=== PATIENT | male | born 1985 | race Caucasian/White ===

== ENCOUNTER 2022-12-03 11:27 | Inpatient (IN) | payer OTHER ==
[2022-12-03 11:58] VITALS: BMI 22.8
[2022-12-03] MEDS ORDERED: BENZONATATE 200 MG CAPSULE PO PRN (12:50)
[2022-12-03] MEDS ORDERED: LOPERAMIDE HCL 2 MG CAPSULE PO PRN (12:50)
[2022-12-03] MEDS ORDERED: NALOXONE HCL 0.4 MG/ML VIAL IM PRN (12:50)
[2022-12-03] MEDS ORDERED: ONDANSETRON *ODT* 4 MG TABLET SL PRN (12:50)
[2022-12-03] MEDS ORDERED: IBUPROFEN 400 MG TABLET (FP) PO PRN (12:50)
[2022-12-03] MEDS ORDERED: NALOXONE HCL (KLOXXADO) 8 MG SPRAY NS PRN (12:50)
[2022-12-03] MEDS ORDERED: POLYETHYLENE GLYCOL (HEALTHYLAX) 3350 17 GM PACKET PO PRN (12:50)
[2022-12-03] MEDS ORDERED: NICOTINE 10 MG CARTRIDGE (INHALER) IH PRN (12:50)
[2022-12-03] MEDS ORDERED: ACETAMINOPHEN 325 MG TABLET (FP) PO PRN (12:50)
[2022-12-03] MEDS ORDERED: BISMUTH SUBSALICYLATE 524 MG/30 ML PO PRN (12:50)
[2022-12-03] MEDS ORDERED: MAG HYDROX/AL HYDROX/SIMETH 30 ML UNIT-DOSE CUP PO PRN (12:50)
[2022-12-03] MEDS ORDERED: MAGNESIUM HYDROX 2400MG/30ML ORAL SUSPENSION 30 ML CUP PO PRN (12:50)
[2022-12-03] MEDS ORDERED: LORazepam 1 MG TABLET PO PRN (12:50)
[2022-12-03] MEDS ORDERED: IBUPROFEN 600 MG TABLET (FP) PO PRN (12:50)
[2022-12-03] MEDS ORDERED: BENZOCAINE/MENTHOL (CHLORASEPTIC ) LOZENGE MM PRN (12:50)
[2022-12-03] MEDS ORDERED: guaiFENesin 600 MG TABLET.ER (FP) PO PRN (12:50)
[2022-12-03] MEDS ORDERED: DICYCLOMINE HCL 10 MG CAPSULE PO PRN (12:50)
[2022-12-03] MEDS ORDERED: LORazepam 2 MG TABLET PO ONE (13:30)
[2022-12-03] MEDS: PRENATAL VITAMINS W/ FOLIC ACID TABLET (FP) PO SCH (15:19)
[2022-12-03] MEDS: NICOTINE 14 MG/24 HOURS TOPICAL PATCH TD SCH (15:19)
[2022-12-03] MEDS ORDERED: BACITRACIN 0.9 GM PACKET TP ONE (18:03)
[2022-12-03] MEDS: LORazepam 2 MG TABLET PO SCH ×2 (18:28→22:43)
[2022-12-03] MEDS ORDERED: MELATONIN 5 MG TABLETS PO SCH (22:00)
[2022-12-03] MEDS: THIAMINE HCL 100 MG TABLET (FP) PO SCH (22:42)
[2022-12-03] MEDS: BACITRACIN 0.9 GM PACKET TP SCH (22:42)
[2022-12-04] MEDS: LORazepam 2 MG TABLET PO SCH ×5 (05:32→22:30)
[2022-12-04] MEDS: hydrOXYzine PAMOATE 25 MG CAPSULE (FP) PO PRN (05:33)
[2022-12-04] MEDS: METHOCARBAMOL 500 MG TABLET PO PRN ×2 (05:33→22:29)
[2022-12-04] MEDS: NICOTINE 14 MG/24 HOURS TOPICAL PATCH TD SCH (10:31)
[2022-12-04] MEDS: BACITRACIN 0.9 GM PACKET TP SCH ×2 (10:32→22:28)
[2022-12-04] MEDS: PRENATAL VITAMINS W/ FOLIC ACID TABLET (FP) PO SCH (10:33)
[2022-12-04 10:46] LABS: HEMATOCRIT 37.9 % (35.4-49); HEMOGLOBIN 13.5 GM/dL (11.7-16.9); MCH 32.9 pg (25.7-33.7); MCHC 35.5 g/dl (32.0-35.9); MEAN CELL VOLUME 92.6 fl (80-96); MEAN PLT VOLUME 9.4 fl (7.5-11.1); PLATELET COUNT 264 10^3/uL (134-434); RBC 4.09 M/mm3 (4.00-5.60); RDW 13.8 % (11.9-15.9); WHITE BLOOD COUNT 10.9 K/mm3 (4.0-10.0)
[2022-12-04 10:47] LABS: POTASSIUM 4.2 mmol/L (3.5-5.1)
[2022-12-04 10:49] LABS: ALBUMIN 3.1 g/dl (3.4-5.0); BLOOD UREA NITROGEN 11.7 mg/dL (7-18); CALCIUM 8.4 mg/dL (8.5-10.1)
[2022-12-04 10:53] LABS: CREATININE 0.8 mg/dL (0.55-1.3)
[2022-12-04 10:54] LABS: BILIRUBIN,TOTAL 0.3 mg/dL (0.2-1); TOT PROT 6.6 g/dl (6.4-8.2)
[2022-12-04] MEDS: LACTULOSE 20 GM/30 ML UDC (FOR ORAL USE ONLY) PO SCH (22:27)
[2022-12-04] MEDS: MELATONIN 5 MG TABLETS PO SCH (22:29)
[2022-12-04] MEDS: THIAMINE HCL 100 MG TABLET (FP) PO SCH (22:29)
[2022-12-05] MEDS: LORazepam 1 MG TABLET PO SCH ×2 (05:57→07:34)
[2022-12-05] MEDS: LACTULOSE 20 GM/30 ML UDC (FOR ORAL USE ONLY) PO SCH ×4 (05:57→22:49)
[2022-12-05] MEDS ORDERED: chlordiazePOXIDE HCL 25 MG CAPSULE PO PRN (10:26)
[2022-12-05] MEDS: BACITRACIN 0.9 GM PACKET TP SCH ×2 (10:39→22:49)
[2022-12-05] MEDS: PRENATAL VITAMINS W/ FOLIC ACID TABLET (FP) PO SCH (10:39)
[2022-12-05] MEDS: NICOTINE 14 MG/24 HOURS TOPICAL PATCH TD SCH (10:42)
[2022-12-05 21:15] VITALS: RESP 18
[2022-12-05] MEDS: MELATONIN 5 MG TABLETS PO SCH (22:49)
[2022-12-05] MEDS: THIAMINE HCL 100 MG TABLET (FP) PO SCH (22:49)
[2022-12-06] MEDS ORDERED: LORazepam 0.5 MG TABLET PO PRN
[2022-12-06] MEDS ORDERED: LORazepam 0.5 MG TABLET PO SCH (05:00)
[2022-12-06] MEDS ORDERED: chlordiazePOXIDE HCL 10 MG CAPSULE PO PRN (05:00)
[2022-12-06] MEDS: LACTULOSE 20 GM/30 ML UDC (FOR ORAL USE ONLY) PO SCH ×2 (06:12→14:23)
[2022-12-06] MEDS: chlordiazePOXIDE HCL 10 MG CAPSULE PO SCH ×4 (06:13→22:06)
[2022-12-06] MEDS: METHOCARBAMOL 500 MG TABLET PO PRN (08:39)
[2022-12-06] MEDS: hydrOXYzine PAMOATE 25 MG CAPSULE (FP) PO PRN ×2 (08:39→22:08)
[2022-12-06] MEDS: PRENATAL VITAMINS W/ FOLIC ACID TABLET (FP) PO SCH (10:13)
[2022-12-06] MEDS: BACITRACIN 0.9 GM PACKET TP SCH ×2 (10:13→22:23)
[2022-12-06] MEDS: NICOTINE 14 MG/24 HOURS TOPICAL PATCH TD SCH (10:14)
[2022-12-06] MEDS ORDERED: chlordiazePOXIDE HCL 25 MG CAPSULE PO SCH (11:00)
[2022-12-06 12:45] VITALS: TEMP 97.7
[2022-12-06] MEDS: THIAMINE HCL 100 MG TABLET (FP) PO SCH (22:06)
[2022-12-06] MEDS: MELATONIN 5 MG TABLETS PO SCH (22:06)
[2022-12-07] MEDS ORDERED: LORazepam 0.5 MG TABLET PO ONE (05:00)
[2022-12-07] MEDS: chlordiazePOXIDE HCL 10 MG CAPSULE PO SCH (06:06)
[2022-12-07 09:13] VITALS: BP 113/60; PULSE 60
[2022-12-07] MEDS: BACITRACIN 0.9 GM PACKET TP SCH (10:13)
[2022-12-07] MEDS: NICOTINE 14 MG/24 HOURS TOPICAL PATCH TD SCH (10:14)
[2022-12-07] MEDS: PRENATAL VITAMINS W/ FOLIC ACID TABLET (FP) PO SCH (10:14)
[2022-12-07] MEDS: hydrOXYzine PAMOATE 25 MG CAPSULE (FP) PO PRN (10:15)
== END 2022-12-07 11:34 | disposition other institution (70) | DRG 774 ==
LOC: YASAS 11:27 → Y3N 18:02
PROVIDERS: ADMIT Allergy & Immunology; ATTEND Surgery
PROC: HZ2ZZZZ Detoxification Services for Substance Abuse Treatment (ICD-10-PCS; principal; 2022-12-03)
DX: F10.230 Alcohol dependence with withdrawal, uncomplicated (principal); F14.20 Cocaine dependence, uncomplicated; F12.20 Cannabis dependence, uncomplicated; F17.210 Nicotine dependence, cigarettes, uncomplicated; S52.592D Other fractures of lower end of left radius, subsequent encounter for closed fracture with routine healing; S52.612D Displaced fracture of left ulna styloid process, subsequent encounter for closed fracture with routine healing; W19.XXXD Unspecified fall, subsequent encounter
CPT/HCPCS: 36415; 73110-TC-LT-FY; 73610-TC-LT-FY; 80053; 82140; 85027; 86780; 90715; 93005; 93010; 99282-25; C9803-CS; U0003; U0005